=== PATIENT | female | born 1995 | race Two or more races ===

== ENCOUNTER 2024-06-19 11:24 | Outpatient (CLI) | payer MEDICAID, SELFPAY ==
--- NOTE | 2024-06-19 11:29 | XR_ITS ---
Examination: Biophysical profile, ultrasound Date and time of exam: June 19, 2024 at 1158 hours INDICATIONS: Diagnosis growth retardation, diagnosis severe maternal anemia Technique: Multiple transabdominal sonographic images of the pelvis abdomen obtained. Attention is directed to the breathing movement, gross body movement, amniotic fluid volume and tone. Findings: Amniotic fluid index 11.1 cm Total biophysical profile is 8 of 8. breathing movement is 2. Gross body movement is 2. tone is 2. Qualitative amniotic fluid volume is 2 Impression: Biophysical profile is 8 of 8.
[2024-06-19 11:33] VITALS: BP 118/50; PULSE 111; RESP 100; RESP 16; TEMP 36.7; O2SAT 100; BMI 28.3
[2024-06-19] MEDS: FERRIC SOD GLUC INJ 125 MG in SODIUM CHLORIDE 0.9% 100 ML 110 MG IV (12:50)
[2024-06-19 13:42] VITALS: BP 107/63; PULSE 66
== END 2024-06-19 14:00 | disposition home or self-care (01) ==
LOC: S4S1 11:26 → S4SX 11:26
PROVIDERS: PCP Family Medicine; Referring Provider Obstetrics & Gynecology; Visit Provider Obstetrics & Gynecology
DX: O99.013 Anemia complicating pregnancy, third trimester (principal); D64.9 Anemia, unspecified; O36.5930 Maternal care for other known or suspected poor fetal growth, third trimester, not applicable or unspecified; Z3A.31 31 weeks gestation of pregnancy
CPT/HCPCS: 59025; 76819; J2916; J7050

== ENCOUNTER 2024-06-20 14:27 | Observation (INO) | payer MEDICAID, SELFPAY ==
[2024-06-20] VITALS (79 sets, daily range): BP systolic 94–127; BP diastolic 50–70; PULSE 59–88; RESP 16–99; TEMP 36.7–37; O2SAT 100; BMI 27.8
[2024-06-20 15:20] LABS: Basophils # (Auto) 0.1 Thou/mm3 (0.0-0.2); Basophils % (Auto) 1 % (0-2.5); Eosinophils # (Auto) 0.1 Thou/mm3 (0.0-0.5); Eosinophils % (Auto) 1 % (0-10); Hematocrit 21.8 % (36.0-46.0); Immature Granulocytes % (Auto) 0 % (0-0); Immature Granulocytes Auto 0.04 Thou/mm3 (0.00-0.00); Lymphocytes # (Auto) 1.8 Thou/mm3 (1.0-4.8); Lymphocytes % (Auto) 17 % (10-50); Mean Corpuscular HGB Conc 29.4 g/dl (31.0-37.0); Mean Corpuscular Hemoglobin 20.1 pg (25.0-35.0); Mean Corpuscular Volume 69 fL (80-100); Monocytes # (Auto) 0.6 Thou/mm3 (0.0-0.8); Monocytes % (Auto) 6 % (0-12); Neutrophils # (Auto) 7.9 Thou/mm3 (1.8-7.7); Neutrophils % (Auto) 76 % (37-80); Nucleated Red Blood Cell % 0 /100 WBC (0); Platelet Count 183 Thou/mm3 (140-440); RDW Standard Deviation 50.4 fL (36.4-46.3); Red Blood Count 3.18 Miln/mm3 (4.00-5.20); White Blood Count 10.5 Thou/mm3 (3.6-11.0)
[2024-06-20 15:32] LABS: Hemoglobin 6.4 g/dL (12.0-16.0)
== END 2024-06-20 20:00 | disposition home or self-care (01) ==
PROVIDERS: Admitting Provider Student in an Organized Health Care Education/Training Program; Visit Provider Student in an Organized Health Care Education/Training Program
DX: Z34.83 Encounter for supervision of other normal pregnancy, third trimester (principal); Z3A.31 31 weeks gestation of pregnancy
CPT/HCPCS: 36415; 36430; 59025; 59899; 85025; 86850; 86900; 86901; 86923; P9016

== ENCOUNTER 2024-07-05 17:13 | Outpatient (CLI) | payer MEDICAID, SELFPAY ==
[2024-07-05 17:40] VITALS: BMI 28.1
[2024-07-05 17:45] VITALS: BP 118/56; PULSE 80; RESP 16; RESP 99; TEMP 36.8
--- NOTE | 2024-07-05 17:45 | XR_ITS ---
Examination: Biophysical profile, ultrasound Date and time of exam: July 05, 20243 hrs. Indications: Diagnosis small for gestational age Technique: Multiple transabdominal sonographic images of the pelvis abdomen obtained. Attention is directed to the breathing movement, gross body movement, amniotic fluid volume and tone. Findings: Amniotic fluid index 11.0 cm Total biophysical profile is 8 of 8. breathing movement is 2. Gross body movement is 2. tone is 2. Qualitative amniotic fluid volume is 2 Impression: Biophysical profile is 8 of 8.
[2024-07-05 17:50] VITALS: BP 118/56; PULSE 80
[2024-07-05 19:10] VITALS: TEMP 36.7
== END 2024-07-05 22:30 | disposition home or self-care (01) ==
LOC: CNST 17:41 → S4SX 17:43
PROVIDERS: PCP Family Medicine; Referring Provider Student in an Organized Health Care Education/Training Program; Visit Provider Student in an Organized Health Care Education/Training Program
DX: O36.5930 Maternal care for other known or suspected poor fetal growth, third trimester, not applicable or unspecified (principal); Z3A.33 33 weeks gestation of pregnancy
CPT/HCPCS: 59025; 76819

== ENCOUNTER 2024-07-19 15:01 | Observation (INO) | payer MEDICAID, SELFPAY ==
[2024-07-19] VITALS (10 sets, daily range): BP systolic 107; BP diastolic 64; PULSE 64–78; RESP 20–99; TEMP 36.6; O2SAT 98–99; BMI 28.5
[2024-07-19] MEDS: FERRIC SOD GLUC INJ 125 MG in SODIUM CHLORIDE 0.9% 100 ML 110 MG IV (16:54)
--- NOTE | 2024-07-19 18:10 | PC.NURSE ---
1805 provided and educated pt on kick count and labor precautions, pt verbalized understanding
== END 2024-07-19 18:05 | disposition home or self-care (01) ==
PROVIDERS: Admitting Provider Student in an Organized Health Care Education/Training Program; PCP Family Medicine; Visit Provider Student in an Organized Health Care Education/Training Program
DX: Z34.83 Encounter for supervision of other normal pregnancy, third trimester (principal); Z36.89 Encounter for other specified antenatal screening; Z3A.35 35 weeks gestation of pregnancy
CPT/HCPCS: 59025; 59899; J2916; J7050

== ENCOUNTER 2024-08-02 13:19 | Outpatient (RCR) | payer MEDICAID, SELFPAY ==
--- NOTE | 2024-07-12 13:52 | XR_ITS ---
Examination: Biophysical profile, ultrasound Date and time of exam: July 12, 2024 at 1357 hours INDICATIONS: Diagnosis intrauterine growth retardation, diagnosis small for gestational age, diagnosis maternal anemia Technique: Multiple transabdominal sonographic images of the pelvis abdomen obtained. Attention is directed to the breathing movement, gross body movement, amniotic fluid volume and tone. Findings: Amniotic fluid index 11.8 cm Total biophysical profile is 8 of 8. breathing movement is 2. Gross body movement is 2. tone is 2. Qualitative amniotic fluid volume is 2 Impression: Biophysical profile is 8 of 8.
[2024-07-12 14:30] VITALS: BP 119/68; PULSE 83; RESP 16
--- NOTE | 2024-07-19 13:32 | XR_ITS ---
Examination: Biophysical profile, ultrasound Date and time of exam: July 19, 2024 at 1350 hrs. Indications: Diagnosis maternal anemia, diagnosis intrauterine growth retardation, diagnosis small for dates Technique: Multiple transabdominal sonographic images of the pelvis abdomen obtained. Attention is directed to the breathing movement, gross body movement, amniotic fluid volume and tone. Findings: Amniotic fluid index 8.1 cm Total biophysical profile is 8 of 8. breathing movement is 2. Gross body movement is 2. tone is 2. Qualitative amniotic fluid volume is 2 Impression: Biophysical profile is 8 of 8.
[2024-07-19 14:16] VITALS: BP 107/71; PULSE 106; RESP 16; TEMP 36.7
--- NOTE | 2024-08-02 13:34 | XR_ITS ---
Examination: Biophysical profile, ultrasound Date and time of exam: August 02, 2024 1337 hours INDICATIONS: Diagnosis intrauterine growth retardation, diagnosis maternal anemia, diagnosis small for dates, diagnosis intrauterine growth retardation Technique: Multiple transabdominal sonographic images of the pelvis abdomen obtained. Attention is directed to the breathing movement, gross body movement, amniotic fluid volume and tone. Findings: Amniotic fluid index 8.2 cm Total biophysical profile is 8 of 8. breathing movement is 2. Gross body movement is 2. tone is 2. Qualitative amniotic fluid volume is 2 Impression: Biophysical profile is 8 of 8.
[2024-08-02 14:10] VITALS: BP 122/66; PULSE 82; RESP 16; TEMP 36.7
== END 2024-08-02 23:59 | disposition home or self-care (01) ==
LOC: S4S1 13:19
PROVIDERS: PCP Family Medicine; Referring Provider Student in an Organized Health Care Education/Training Program; Visit Provider Student in an Organized Health Care Education/Training Program
DX: O26.843 Uterine size-date discrepancy, third trimester (principal); O09.93 Supervision of high risk pregnancy, unspecified, third trimester; Z3A.37 37 weeks gestation of pregnancy
CPT/HCPCS: 59025; 76819

== ENCOUNTER 2024-08-06 21:29 | Inpatient (IN) | payer MEDICAID, SELFPAY ==
[2024-08-06] VITALS (17 sets, daily range): BP systolic 131; BP diastolic 64; PULSE 62–74; TEMP 36.7; O2SAT 99–100; BMI 29.6
--- NOTE | 2024-08-06 22:19 | XR_ITS ---
Examination: Complete OB ultrasound greater than 14 weeks Date and time of exam: August 06, 2024 1131 hours INDICATIONS: Preop labor induction, unknown presentation Findings: Viable intrauterine single fetus with single amniotic sac presentation cephalic Cardiac motion 125 BPM Placenta anterior grade 3 Umbilical cord insertion seen Amniotic fluid index 14.2 cm Cervix 4.5 cm The results secured by bowel gas. Composite estimated gestational age based on BPD, head circumference, abdominal circumference, femur length is 35 weeks 3 days Estimated weight 2672 g. Survey of intracranial anatomy, spinal anatomy, abdominal anatomy, four-chamber heart performed with no abnormalities identified. Impression: Viable intrauterine gestation cephalic presentation.
[2024-08-06 23:10] LABS: Basophils # (Auto) 0.1 Thou/mm3 (0.0-0.2); Basophils % (Auto) 1 % (0-2.5); Eosinophils # (Auto) 0.1 Thou/mm3 (0.0-0.5); Eosinophils % (Auto) 1 % (0-10); Hematocrit 27.9 % (36.0-46.0); Immature Granulocytes % (Auto) 0 % (0-0); Immature Granulocytes Auto 0.02 Thou/mm3 (0.00-0.00); Lymphocytes % (Auto) 20 % (10-50); Mean Corpuscular HGB Conc 31.5 g/dl (31.0-37.0); Mean Corpuscular Hemoglobin 24.3 pg (25.0-35.0); Mean Corpuscular Volume 77 fL (80-100); Monocytes # (Auto) 0.5 Thou/mm3 (0.0-0.8); Monocytes % (Auto) 6 % (0-12); Neutrophils # (Auto) 7.2 Thou/mm3 (1.8-7.7); Neutrophils % (Auto) 73 % (37-80); Nucleated Red Blood Cell % 0 /100 WBC (0); Platelet Count 187 Thou/mm3 (140-440); RDW Standard Deviation 62.9 fL (36.4-46.3); Red Blood Count 3.62 Miln/mm3 (4.00-5.20); White Blood Count 9.9 Thou/mm3 (3.6-11.0)
[2024-08-06 23:16] LABS: Hemoglobin 8.8 g/dL (12.0-16.0)
--- NOTE | 2024-08-06 23:40 | PD.LDHP ---
Documentation for date of: 08/06/24 OB Labor/Induct. HPI History of Present Illness : 5 Term pregnancies: 2 pregnancies: 0 Living children: 2 History of Abortions: Spontaneous and Elective: 0 History of sections: No History of : No RUBY: 08/19/24 Gestational Age (weeks): 38 Gestational Age (days): 1 Indication for induction: other (IUGR) History of present illness: 29 yo IUP 38w1d IOL for IUGR. Care at [facility]. Denies contractions, leaking or bleeding. Reports normal movement. History of Present Dating criteria: LMP confirmed by 1st trimester US Adequate Care: Yes Labs Labs: Positive: Rubella Titre, Negative: RPR, Hepatitis B, HIV, Chlamydia, Gonorrhea, Herpes Type 1 and Herpes Type 2 and Unknown: Group Beta Strep and Covid-19 Review of Systems Review of Systems Narrative Review of Systems: Denies any chest pain, palpitations, shortness of breath, fever, cough, abdominal pain or lower extremitiy pain. Past Medical History Surgical History SURGICAL: Negative Section Meds Home Medications and Allergies Home Medications ?Medication ?Instructions ?Recorded ?Confirmed ?Type No Known Home Medications 06/19/24 07/19/24 History Allergies Allergy/AdvReac Type Severity Reaction Status Date / Time codeine Allergy Mild Nausea Verified 08/06/24 21:31 OB Exam Physical Exam Vital signs: Temp Pulse BP Pulse Ox 98.1 F 68 131/64 H 99 08/06/24 21:53 08/06/24 21:53 08/06/24 21:53 08/06/24 23:36 Routine HEENT Exam Comments: Oropharynx and sclera clear Routine Respiratory Exam Comments: CTA B/L Routine Cardiovascular Exam Comments: RRR Routine Abdominal Exam Comments: Gravid , EFW 2672g. Detailed Labor and Delivery Exam Dilation (cm): 1 Effacement (%): thick station: -4 Presentation: Vertex Membranes: intact OB Results Labs 08/06/24 22:00 Labs: Short CBC 08/06/24 Range/Units 22:00 WBC 9.9 (3.6-11.0) Thou/mm3 Hgb 8.8 L (12.0-16.0) g/dL Hct 27.9 L (36.0-46.0) % Plt Count 187 (140-440) Thou/mm3 Impressions Impression: Viable IUP 38w1d by best dates. IUGR Anemia Hb 8.8 Induction of Labor Anticipate Type and Hold 2 u pRBCs. Informed consent obtained, the patient was made aware of the risks, complications, alternatives and benefits of OVD and C/S and agrees with these modes of delivery if indicated.
[2024-08-06 23:44] LABS: Syphilis Nonreactive (Nonreactive)
[2024-08-07] VITALS (84 sets, daily range): BP systolic 110–121; BP diastolic 53–77; PULSE 55–88; RESP 16–18; TEMP 36.8–37; O2SAT 99–100
[2024-08-07] MEDS: DINOPROSTONE 10 MG VAG.SUPP VAGINAL (01:42)
--- NOTE | 2024-08-07 09:33 | PD.LDPN ---
Documentation for date of: 08/07/24 OB Labor Progress Note Pelvic Exam Dilation (cm): 1 Effacement (%): thick station: -4 Amniotic membrane status: Intact Contractions Monitor mode: External Contraction frequency: 12 Contraction intensity: Mild Status status: Category l Assessment and Plan Comments: 29 y/o admitted for IOL for IUGR. IOL was started by [facility] charge preparation technician provider yesterday. Pt had a cervidil yesterday night . I got a call from Dr Shannon about unknown antibody being positive , and unless [place] antibody is identified , [facility] cannot allot any units of blood for transfusuin. Les has a very high risk of PPH , per history . patient recieved a blood transfusion in her third trimester and antibodies were detected after the transfusion. IOL is halted as of now , until exact identity of the antibody is known. NST to continue
[2024-08-08] VITALS (7 sets, daily range): BP systolic 100–110; BP diastolic 51–63; PULSE 65–78; RESP 16–18; TEMP 36.7–36.8
--- NOTE | 2024-08-08 09:30 | PC.NURSE ---
Mary Lou BAIRES stated she talked to lab Dr. Shannon and the antibody has been identified and pt has 2 units prbcs on hold--may proceed with induction. SVE and if patient gross 7 or below, place cervidil. Lab called and verified 2 units PRBCs are ready for patient.
--- NOTE | 2024-08-08 09:32 | PD.LDPN ---
Documentation for date of: 08/08/24 OB Labor Progress Note Pelvic Exam Dilation (cm): 1 Effacement (%): thick station: -4 Amniotic membrane status: Intact Contractions Monitor mode: External Contraction frequency: irritability/irreg Contraction intensity: Mild Status status: Category l Assessment and Plan Comments: Induction of labor was halted for availability of blood products. I spoke with Dr. Shannon, pathologist, who confirmed that antibody has been detected and appropriate blood products already if needed for transfusion. Induction to be restarted. Cervidil to be placed
[2024-08-08] MEDS: DINOPROSTONE 10 MG VAG.SUPP VAGINAL (11:18)
[2024-08-09] VITALS (69 sets, daily range): BP systolic 103–174; BP diastolic 53–77; PULSE 51–153; RESP 16–20; TEMP 36.8–37.2; O2SAT 79–100
[2024-08-09] MEDS: MISOPROSTOL 50 mCg TABLET 25 MCG PO ×2 (00:02→04:03)
[2024-08-09] MEDS: fentaNYL CIT INJ 50 mCg/ML AMP 2ML 100 MCG IV (05:08)
[2024-08-09] MEDS: ONDANSETRON INJ 2 MG/ML INJ 2 ML 4 MG IV (06:25)
--- NOTE | 2024-08-09 08:51 | PD.LDPN ---
Documentation for date of: 08/09/24 OB Labor Progress Note Pain Control Comments: Epidural Pelvic Exam Dilation (cm): 3.5 Effacement (%): 50 station: -2 Amniotic membrane status: Ruptured Contractions Monitor mode: External Contraction frequency: 2-4 Contraction intensity: Moderate Status status: Category l Assessment and Plan Comments: Anticipate Discussed risks and complications of OVD and C/S and patient agrees with these modes of delivery if indicated.
[2024-08-09] MEDS: RINGERS LACTATED 1000 ML 1,000 ML 100 ML IV (09:21)
[2024-08-09] MEDS: MISOPROSTOL 200 mCg TABLET 800 MCG PR (11:27)
[2024-08-09] MEDS: TRANEXAMIC ACID 1,000 MG IVPB 1,000 MG/100 ML BAG 200 MG IV (11:27)
[2024-08-09] MEDS: IBUPROFEN TAB 400 MG TABLET 800 MG PO (11:27)
[2024-08-09] MEDS: OXYTOCIN in NS 20 units 20 UNIT/1,000 ML BAG 125 UNIT IV (11:29)
[2024-08-09] MEDS: BENZO/LANO/ALOE (Dermoplast) 60 GM CAN 1 SPRAY TOP (11:30)
[2024-08-09 17:13] LABS: Basophils % (Auto) 0 % (0-2.5); Eosinophils % (Auto) 0 % (0-10); Hematocrit 27.5 % (36.0-46.0); Immature Granulocytes % (Auto) 0 % (0-0); Immature Granulocytes Auto 0.05 Thou/mm3 (0.00-0.00); Lymphocytes # (Auto) 1.4 Thou/mm3 (1.0-4.8); Lymphocytes % (Auto) 12 % (10-50); Mean Corpuscular HGB Conc 30.5 g/dl (31.0-37.0); Mean Corpuscular Hemoglobin 24.2 pg (25.0-35.0); Mean Corpuscular Volume 79 fL (80-100); Monocytes # (Auto) 0.6 Thou/mm3 (0.0-0.8); Monocytes % (Auto) 5 % (0-12); Neutrophils # (Auto) 9.5 Thou/mm3 (1.8-7.7); Neutrophils % (Auto) 82 % (37-80); Nucleated Red Blood Cell % 0 /100 WBC (0); Platelet Count 155 Thou/mm3 (140-440); RDW Standard Deviation 64.2 fL (36.4-46.3); Red Blood Count 3.47 Miln/mm3 (4.00-5.20); White Blood Count 11.7 Thou/mm3 (3.6-11.0)
[2024-08-09 17:24] LABS: Hemoglobin 8.4 g/dL (12.0-16.0)
--- NOTE | 2024-08-09 22:30 | OBDSUM_ITS ---
Data ([place]) Data Hx Section: No : 5 Term: 2 : 0 Livin Abortions: Spontaneous & Theraputic: 0 Delivery Data ([place]) Labor Data Initiation of labor: Induction Induction/Augmentation Agent: Cytotec-PO and Cervidil ROM date: 08/09/24 ROM time: 03:00 Amniotic membrane rupture type: Spontaneous Amniotic fluid description: Clear Delivery Data EDC: 08/19/24 EDC calculated by:: LMP/early US confirmation Onset of labor date: 08/09/24 Onset of labor time: 07:00 Complete dilation date: 08/09/24 Complete dilation time: 10:43 [place] delivery date: 08/09/24 delivery time: 10:57 Gestational age (weeks): 38 Gestational age (days): 4 Placenta delivery date: 08/09/24 Placenta delivery time: 11:02 Stage 1 total time: Labor - Stage 1 Duration 3 hours and 43 minutes Delivered by: Saleem Camarena Delivery nurse: BELKIS Montero RN [place] nurse: Lori Lei RN [place] Laborer at delivery: No Other staff at delivery: [id number] Delivery Method Delivery method: Normal Vaginal Delivery Presentation: Vertex position: OA Anesthesia Type Anesthesia Type: Epidural Placenta Placenta delivery description: Spontaneous Cord blood sent to lab: Yes cord blood collection: Cord Blood Type EBL Estimated blood loss (ml): 150 Umbilical Cord cord description: 3 Vessels Complications Complications: None [place] Data ([facility]) Data [place]'s gender: Female Identification band number: [id number] weight (gms): 5 lb 3.952 oz Weight (pounds): 5 lbs and 4.0 ozs 1 minute: 7 5 minutes: 9
[2024-08-10] MEDS: IBUPROFEN TAB 400 MG TABLET 800 MG PO ×2 (02:21→11:18)
[2024-08-10 03:47] VITALS: BP 122/72; PULSE 61; RESP 16; TEMP 36.7; O2SAT 98
[2024-08-10 08:00] VITALS: BP 132/78; PULSE 60; RESP 16; TEMP 36.7; O2SAT 98
--- NOTE | 2024-08-10 09:43 | PD.LDPPPRG ---
Subjective Subjective Interval history: Delivery type: Patient doing well this morning. No acute complaints. Ambulating, tolerating p.o. and voiding without difficulty. HTN/Pre-Eclampsia screen: No chest pain, shortness of breath, headache, visual changes, epigastric or right upper quadrant pain. Breast-feeding, lochia diminishing. Bowel: Flatus+/ BM+ Exam Vital Signs Temp Pulse Resp BP Pulse Ox O2 Del Method 98.1 F 60 16 132/78 H 98 Room Air 08/10/24 08:00 08/10/24 08:00 08/10/24 08:00 08/10/24 08:00 08/10/24 08:00 08/10/24 08:00 Constitutional Constitutional: no acute distress Routine HEENT Exam Head: Present normocephalic and atraumatic Eye: Present EOMI and PERRL ENT: Present mucous membranes moist Routine Neck Exam Neck: Present supple and trachea midline Routine Respiratory Exam Respiratory: Present chest non-tender, lungs clear, normal breath sounds and no resp distress Routine Cardiovascular Exam Cardiovascular: Present RRR Routine Abdominal Exam Abdominal: Present soft and normoactive bowel sounds Routine Extremities Exam Extremities: Present full ROM Routine Skin Exam Skin: Present intact, dry and warm Routine Neurological Exam Neurological: Present alert, oriented X3 and CN II-XII intact Routine Psychiatric Exam Psychiatric: Present normal affect and normal thought process Objective Labs 08/09/24 16:45 Labs: Laboratory Results - last 24 hr 08/06/24 08/09/24 22:00 16:45 WBC 11.7 H RBC 3.47 L Hgb 8.4 L Hct 27.5 L MCV 79 L MCH 24.2 L MCHC 30.5 L RDW Std Deviation 64.2 H Plt Count 155 D Neut % (Auto) 82 H Lymph % (Auto) 12 [place] % (Auto) 5 Eos % (Auto) 0 Baso % (Auto) 0 Neut # (Auto) 9.5 H Lymph # (Auto) 1.4 [place] # (Auto) 0.6 Eos # (Auto) 0.0 Baso # (Auto) 0.0 Immature Gran # (Auto) 0.05 H Absolute Nucleated RBC 0.00 Immature Gran % 0 Nucleated RBC % 0 Crossmatch See Detail Assessment & Plan Problem List (1) IUGR (intrauterine growth restriction): Status: Acute (2) Normal spontaneous vaginal delivery: Status: Acute Assessment and plan: 1. Continue routine /post-op care 2. Labs reviewed, cbc appropriate 3. Remove dressing/Miranda 4. Encourage to ambulate, shower 5. Encourage PO intake, breast feeding Time Spent With Patient Time: Total time spent is greater than 50% in coordination of care (as documented) at patient's floor/unit and/or counseling patient:
[2024-08-10 12:29] VITALS: BP 104/61; PULSE 61; RESP 17; TEMP 36.7; O2SAT 98
== END 2024-08-10 18:20 | disposition home or self-care (01) | DRG 560 ==
LOC: S4SX 08-09 11:07 → S4NX 08-09 15:44
PROVIDERS: Admitting Provider Specialist; Visit Provider Student in an Organized Health Care Education/Training Program
DX: O36.5930 Maternal care for other known or suspected poor fetal growth, third trimester, not applicable or unspecified (principal); Z37.0 Single live birth; Z3A.38 38 weeks gestation of pregnancy
CPT/HCPCS: 36415; 59409; 76805; 85025; 86780; 86850; 86870; 86900; 86901; 86921; 86922; 94762; J2274; J2405; J2590; J2795; J3010; J3490; J7120; S0191; A9270; J2270